=== PATIENT | male | born 1965 | race Caucasian/White ===

== ENCOUNTER 2024-09-18 15:23 | Outpatient (AMB) | payer OTHER, SELFPAY ==
--- NOTE | 2024-09-18 15:25 | MHC.OFFVIS ---
Vital Signs 09/18/24 15:27 Height 5 ft 4 in Weight 245 lb 13.047 oz BMI 42.2 BP 176/84 H Blood Pressure Location Rt brachial Position Sitting Pulse 65 Pulse Source Pulse Oximeter Pulse Oximetry (%) 96 Oxygen Delivery Method Room Air Intake Visit Reasons: sleep apnea Allergies No Known Allergies Allergy (Verified 09/18/24 15:30) HPI HPI sleep apnea: Details: Edmund is a pleasant 58-year-old male, never smoker with underlying coronary artery disease status post CABG x 3 2020, hypertension, hyperlipidemia, diabetes mellitus type 2, GERD and very severe MAHAMED on CPAP. He was referred by PCP management of sleep apnea. He reports prior to diagnosis h/o ongoing daytime fatigue, non restorative sleep, loud snoring and witnessed apneas. He has been using and benefitting from CPAP therapy with pressure settings of [id number] with a nasal mask over the last 15 years, and is in need of a new machine. His last PSG was 2009 revealing very severe MAHAMED with AHI 115 with moderate nocturnal hypoxemixa <89% for 50 minutes. His current machine is >5 years old and displaying end of motor life. DME is [employer]. He does note more daytime fatigue over the last few months however unsure if it is related to pressures. At this time he denies any respiratory symptoms. [facility] Social History (Updated 09/18/24 @ 15:30 by Marie Moreno [facility]) Patient Tobacco Use Status: Never used Tobacco Review of Systems Const Denies chills, Denies excessive sweating, Denies fever(s), Denies headache(s) and Denies night sweats Eyes Denies dry eyes, Denies irritation and Denies itchy eyes ENT Reports Normal hearing present, Denies headache(s), Denies nasal congestion, Denies nasal discharge, Denies post nasal drip and Denies sore throat Card Denies chest pain, Denies chest pain at rest, Denies chest pain with activity, Denies claudication, Denies leg edema, Denies dyspnea, Denies dyspnea on exertion, Denies orthopnea and Denies paroxysmal nocturnal dyspnea Resp Denies chest congestion, Denies cough, Denies excessive phlegm production, Denies pain on inspiration, Denies pain with cough, Denies dyspnea, Denies dyspnea on exertion, Denies stridor and Denies wheezing Musc Denies myalgias Neuro Reports Normal hearing present and Denies headache(s) Endo Denies excessive sweating Dennis/Lymph Denies lymphadenopathy Aller/Immun Denies itchy eyes, Denies seasonal rhinorrhea and Denies wheezing Physical Exam Vital Signs: Last Vital Signs Pulse 65 09/18/24 15:27 BP 176/84 H 09/18/24 15:27 Pulse Ox 96 09/18/24 15:27 Oxygen Delivery Method Room Air 09/18/24 15:27 BMI result Body Mass Index 42.2 Const General: cooperative, healthy appearing, comfortable, no acute distress, well developed and alert Nutritional Appearance: obese Orientation/consciousness: patient oriented x3 Limitations: no limitations HEENT Head: Yes normal to inspection, Yes normocephalic and Yes atraumatic Ears: hearing grossly normal bilaterally and external ears normal Eyes General: appearance normal, both eyes and all related structures Eyelids: Yes eyelids normal Sclerae: sclerae normal EOM: EOMs intact bilaterally Neck Neck: Yes normal visual inspection and Yes no lymphadenopathy Lymphatic: no lymphadenopathy noted Chest Chest palpation & inspection: normal inspection of the chest Resp Effort & Inspection: normal respiratory effort, able to speak in complete sentences, no audible wheezes, no cough, no stridor, not tachypneic, no tripod positioning and no use of accessory muscles Auscultation: clear to auscultation bilaterally Cardio Jugular venous distension: no JVD Rate: regular rate Rhythm: regular rhythm Skin Other: warm, dry General skin exam: no rashes or lesions noted Neuro General: patient oriented x3 Cranial nerves: Yes Normal hearing present Cognition (Neuro): normal cognition Gait exam (Neuro): Normal gait present Extrem General: Yes normal to inspection, Yes capillary refill normal, Yes no clubbing, cyanosis or edema and Yes no pedal edema Psych Appearance: grossly normal and well kempt Speech and movement: Normal speech and movement present and Clear speech present Affect: normal affect Attitude: cooperative Thought process: Normal thought process present Thought content: Normal thought content present Insight: Good insight present (Psych) Judgement: Good judgement present (Psych) Assessment & Plan Assessment & Plan (1) Severe obstructive sleep apnea: Code(s): G47.33 - Obstructive sleep apnea (adult) (pediatric) Category: Medical (2) Nocturnal hypoxemia: Code(s): G47.34 - Idiopathic sleep related nonobstructive alveolar hypoventilation Category: Medical (3) Daytime somnolence: Code(s): R40.0 - Somnolence Category: Medical Plan Edmund presents for management of severe obstructive sleep apnea with moderate nocturnal hypoxemia. Patient's last PSG was in 2009 and he reports changes in weight since then in addition to increased daytime fatigue over the last few months. Will send for in lab titration study to ensure optimal pressures. Once established on CPAP therapy, will send for overnight to ensure resolution of nocturnal hypoxemia with the use of CPAP. Reviewed BP and patient recently having adjustments to BP medications, will follow up with cardiology. All questions were answered and claudiat is in agreement of plan. Will follow up to review results or sooner if needed. Orders: Orders RT PSG in-lab sleep titration Today G47.33 - Obstructive sleep apnea (adult) (pediatric), G47.34 - Idiopathic sleep related nonobstructive alveolar hypoventilation, R40.0 - Somnolence Coding Level of Care Code New Pt Level 3 (45884) Diagnoses Severe obstructive sleep apnea G47.33 Nocturnal hypoxemia G47.34 Daytime somnolence R40.0
[2024-09-18 15:27] VITALS: BP 176/84; PULSE 65; O2SAT 96; BMI 42.2
--- OUTSIDE RECORDS SUMMARY | 2024-09-18 17:17 | XMS_ITS | Clinical Summary ---
Author Organization [facility] [address] [place] [address] [place] [phone] Phone Care Team Providers Care Futures Trader Name Role Phone Krish Adams MD Primary Care Provider Allergies No known active allergies Medications lansoprazole (PREVACID) [address] capsule Take 1 capsule (15 mg total) by mouth 1 (one) time each day. 06/01/19 23 Active aspirin 81 mg EC tablet Take 81 mg by mouth daily. Active blood-glucose meter (BLOOD GLUCOSE MONITORING MISC) Check fasting sugars once daily upon awakening before food or drink 01/18/20 Active isopropyl alcohol-benzocai ne 70-6 % pads, medicated 1 Each by Does not apply route daily. Check fasting sugars once daily upon awakening before food or drink 01/18/20 Active miscellaneous medical supply misc HISTORICAL CPAP - Inhale into the lungs.apria-p ressure 6-16 Active nitroglycerin (NITROSTAT) 0.[address] 1 tablet (0.4 mg total) under the tongue every 5 (five) minutes if needed for chest pain. 30 tablet 1 03/13/20 24 026 Active FreeStyle Test test stripIndications :Type 2 diabetes mellitus without complications (CMS/HCC V24, CMS/HCC V28) USE TO CHECK SUGARS TWICE DAILY 200 strip 1 04/18/19 25 Active metFORMIN XR (GLUCOPHAGE-XR) 500 mg 24 hr tablet TAKE 2 TABLETS BY MOUTH TWICE A DAY WITH MEALS 360 tablet 1 05/09/19 25 Active freestyle (FreeStyle Lancets) 28 gauge lancets Check blood sugars 1-2 times a day. 200 each 2 05/29/19 25 Active dulaglutide (Trulicity) 1.5 mg/0.5 mL pen injector injectionIndicat ions:Coronary artery disease involving coronary bypass graft of [place] heart without angina pectoris,Primary hypertension,Mix ed hyperlipidemia,T ype 2 diabetes mellitus without complication, without long-term current use of insulin ([facility] V24, [facility] V28),MAHAMED on CPAP,Gastroesoph ageal reflux disease without esophagitis,Asym ptomatic varicose veins of both lower extremities Inject 0.5 mL (1.5 mg total) under the skin 1 (one) time per week. 6 mL 1 07/29/19 25 Active atorvastatin (LIPITOR) 40 mg tablet Take 1 tablet (40 mg total) by mouth 1 (one) time each day. 90 each 1 07/29/19 25 Active metoprolol tartrate (LOPRESSOR) 25 mg tablet TAKE 1 TABLET BY MOUTH TWICE A DAY 180 tablet 1 09/09/19 25 Active lisinopril (PRINIVIL,ZESTRI L) 40 mg tablet TAKE 1 TABLET BY MOUTH 1 TIME EACH DAY. 90 tablet 1 09/09/19 25 Active metoprolol tartrate (LOPRESSOR) 25 mg tablet Take 1 tablet (25 mg total) by mouth 2 (two) times a day. 12/30/19 24 025 Discontinued lisinopril (PRINIVIL,ZESTRI L) 40 mg tablet Take 1 tablet (40 mg total) by mouth 1 (one) time each day. 90 each 1 03/13/20 24 025 Discontinued Active Problems Problem Noted Date Diagnosed Date Gastroesophageal reflux disease without esophagi tis 07/27/2024 Asymptomatic varicose veins of both lower extrem ities 07/27/2024 Morbid obesity with BMI of 4 0.0-44.9, adult ([facility] V24, [facility] V28) 02/01/2024 Primary hypertension 02/08/2023 Overview (02/01/2024): Last Assessment & Plan: Blood pressure has been quite elevated and I will increase lisinopril to 20 mg daily. He is going to see his primary care physician's office in couple weeks to see whether hypertension has been better controlled. We discussed low-salt diet. Mixed hyperlipidemia 11/13/2020 Overview (02/01/2024): Last Assessment & Plan: Well-controlled. Continue high-dose statin. 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 Lipid profile excellent. Suggest more activity. Hope to lose weight. Bangura's esophagus without dysplasia 03/07/2020 Abnormal stress test 02/07/2020 Overview (02/01/2024): 02/02/2020 Seen by [facility], Dr. Fenton Medications adjusted and scheduled for echo and cardiac cath Type 2 diabetes mellitus wit hout complication, without long-term current use of insulin ([facility] V24, [facility] V28) 01/18/2020 MAHAMED on CPAP 03/08/2017 Overview (02/01/2024): 07/24/2018 to 07/23/2019. CPAP@ 6-16/Average 12.6/Max 14.3. 100% compliant with using the machine for >4 hours/day. Average use is 8.5 hours a night with AHI 3.7. PLMD (periodic limb movement disorder) 0 Encounters Date Type Department Care Team Description 09/14/2024 Telephone [facility] [address] [facility] [address] [place] [address] Sami Fenton MD 07/28/2024 8:00 AM EDT Office Visit Adult Medicine [address] [phone] Krish Adams MD Coronary artery disease involving coronary bypass graft of [place] heart without angina pectoris (Primary Dx); Primary hypertension; Mixed hyperlipidemia; Type 2 diabetes mellitus without complication, without long-term current use of insulin ([facility] V24, [facility] V28); MAHAMED on CPAP; Gastroesophageal reflux disease without esophagitis; Asymptomatic varicose veins of both lower extremities; Eye exam, routine 07/17/2024 Telephone Adult Medicine [facility] [address] [place] [phone] Krish Adams MD faxed order (Letter of medical necesity) 07/17/2024 Telephone Adult Medicine [facility] [address] [place] [phone] Krish Adams MD requesting script from Last 3 Months Immunizations Name Administration Dates Next Due Influenza Quadravalent, MDCK , 0.5ml, preservative free (Flucelvax) 6mo and older 01/19/2023,01/15/2021,01/18/2020 Pneumococcal polysaccharide 23 valent (Pneumovax 23) 2yo and older 05/09/2020 Tdap Tetanus diptheria acell ular pertussis (Boostrix; Adacel) 7yo and older 01/18/2020 Surgical History Surgery Date Site/Laterality Comments CORONARY ARTERY BYPASS GRAFT 04/19/2020 PROCEDURE: HISTORICAL CABG Medical History Medical History Date Comments HTN (hypertension) DX:HTN (hyper tension) HLD (hyperlipidemia) DX:HLD (hyp erlipidemia) DM (diabetes mellitus) (CMS/ [facility] V24, [facility] V28) DX:DM (diabetes mellitus) (H CC) CAD (coronary artery disease) DX :CAD (coronary artery disease); COMMENT: Sp CABG GERD (gastroesophageal reflux disease) MAHAMED on CPAP Family History Medical History Relation Name Comments Diabetes Brother Other: Alcoholic cirrhosis Father Diabetes Mother Other: Heart issues Mother Cancer Neg Hx Relation Name Status Comments Brother Father Mother Social History Tobacco Use Types Packs/Day Years Used Date Smoking Tobacco: Never Smokeless Tobacco: Never Tobacco Cessation:Counseling Given: Not Answered Alcohol Use Standard Drinks/Week Comments Yes 0 (1 standard drink = 0.6 oz pur e alcohol) Housing Instability Answer Date Recorde d Are you worried that in the next 2 months you may not have stable housing? No 03/13/2024 Food Access & Nutrition Answer Date Rec orded Do you have access to a vari ety of food including fruits and vegetables? Yes 03/13/2024 Access to Healthcare Answer Date Record ed Within the last 3 months, valorie olivo many times did you visit the emergency department for your medical care? 0 03/13/2024 Health Literacy Answer Date Recorded How often do you need to hav e someone help you when you read instructions, pamphlets, or other written material from your doctor or pharmacy? Rarely 03/13/2024 Caregiver: How often do you need to have someone help you when you read instructions, pamphlets, or other written material from your doctor or pharmacy? Not on file 03/13/2024 Financial Risk Answer Date Recorded How hard is it for you to pa y for the very basics like food, housing, medical care, and air conditioning / heating? Not very hard 03/13/2024 Transportation Answer Date Recorded Has the lack of transportati on kept you from meetings, work, or from getting things needed for daily living? No Has the lack of transportati on kept you from medical appointments or from getting medications? No 03/13/2024 Social Isolation Answer Date Recorded How often do you feel lonely or isolated from th ose around you? Often 03/13/2024 Food Risk Answer Date Recorded Within the past 12 months we worried whether our food would run out before we got money to buy more. Never true 03/13/2024 Within the past 12 months th e food we bought just didn't last and we didn't have money to get more. Never true 03/13/2024 Dependent Care Answer Date Recorded Do you need help finding or paying for care for your loved ones. For example, child care supervisor or elderly care for an older adult? No 03/13/2024 Education Answer Date Recorded Do you think completing more education or training, like finishing a GED, going to college, or learning a trade, would be helpful for you? No 03/13/2024 Employment and Income Answer Date Recor ded During the last four weeks, have you been actively looking for work? No 03/13/2024 Living Situation Answer Date Recorded What is your living situation? 1 05/14/2023 Sex and Gender Information Value Date Recorded Sex Assigned at Not on file Legal Sex Male 4:15 AM EST Gender Identity Not on file Sexual Orientation Not on file Obstetrics History Last Filed Vital Signs Vital Sign Reading Time Taken Comments Blood Pressure 130/80 07/28/2024 8:03 AM EDT Pulse 64 07/28/2024 8:03 AM EDT Temperature 36.6 ??C (97.8 ??F) 07/28/2024 8:03 AM ED T Respiratory Rate 14 07/28/2024 8:03 AM EDT Oxygen Saturation 98% 07/28/2024 8:03 AM EDT Inhaled Oxygen Concentration - - Weight 111 kg (244 lb) 07/28/2024 8:03 AM EDT Height 162.6 cm (5' 4 ) 07/28/2024 8:03 AM EDT Body Mass Index 41.88 07/28/2024 8:03 AM EDT Plan of Treatment Health Maintenance Due Date Last Done Comments Diabetes: Annual Retina Eye Exam 10/27/1973 Pneumococcal Vaccine: 50+ Years (2 of 2 - PCV) 05/09/2021 05/09/2020 Pneumococcal Vaccine: Pediatrics (0 to 5 Years) and At-Risk Patients (6 to 64 Years) (2 of 2 - PCV) 05/09/2021 05/09/2020 Zoster Vaccines (2 of 2) 08/06/2021 06/11/2021 HIV Screening 03/14/2022 RSV Immunization Adult Patients (1 - Risk 60-74 years 1-dose series) 2023 COVID-19 Vaccine (5 - Mixed Product risk season) 2024 01/13/2024, 01/15/2022, 07/01/2020, Additional history exists Diabetes: Blood Sugar Control Test (HGBA1C) 09/18/2024 03/20/2024, 10/04/2023, 10/04/2023 Diabetes: Annual Foot Exam 09/19/2024 09/20/2023 Social Influencers of Health Screening 03/13/2025 03/13/2024 Diabetes: Annual Urine Albumin-Creatinine Ratio (uACR) 03/20/2025 03/20/2024, 10/04/2023 Diabetes: Annual GFR (Glomerular Filtration Rate) 03/20/2025 03/20/2024, 10/04/2023, 10/04/2023 Hypertension/CHF/CAD Annual BMP Blood Test 03/20/2025 03/20/2024, 10/04/2023, 10/04/2023 Depression Screening 07/24/2025 07/24/2024, 03/13/20 24 Cholesterol Screening (Lipid Panel) 10/03/2028 10/04/2023, 10/04/2023 DTaP,Tdap,and Td Vaccines (2 - Td or Tdap) 01/17/2030 01/18/2020 Colorectal Cancer Screening: Colonoscopy 02/21/2031 02/21/2021 Hepatitis C Screening Completed 01/15/2021 Influenza Vaccine Completed 12/23/2023, , 01/16/2022, Additional history exists HIB Vaccines Aged Out No longer eligi ble based on patient's age to complete this topic HPV Vaccines Aged Out No longer eligi ble based on patient's age to complete this topic Hepatitis A Vaccines Aged Out No long er eligible based on patient's age to complete this topic Hepatitis B Vaccines Aged Out No long er eligible based on patient's age to complete this topic IPV Vaccines Aged Out No longer eligi ble based on patient's age to complete this topic MMR Vaccines Aged Out No longer eligi ble based on patient's age to complete this topic Meningococcal ACWY Vaccine Aged Out N o longer eligible based on patient's age to complete this topic Meningococcal B Vaccine Aged Out No l onger eligible based on patient's age to complete this topic RSV Immunization Patients Under 20 months Aged Out No longer eligible based on patient's age to complete this topic Varicella Vaccines Aged Out No longer eligible based on patient's age to complete this topic Procedures Procedure Name Priority Date/Time Associated Diagnosis Comments MICROALBUMIN CREATININE URINE RATIO Routine 03/20/2024 11:42 AM EST Physical exam Coronary artery disease involving coronary bypass graft of [place] heart without angina pectoris Primary hypertension Mixed hyperlipidemia Type 2 diabetes mellitus without complication, without long-term current use of insulin ([facility] V24, [facility] V28) MAHAMED on CPAP Gastroesophageal reflux disease without esophagitis Multiple atypical skin moles Asymptomatic varicose veins of both lower extremities BASIC METABOLIC PANEL Routine 03/20/2024 11:41 AM EST Physical exam Coronary artery disease involving coronary bypass graft of [place] heart without angina pectoris Primary hypertension Mixed hyperlipidemia Type 2 diabetes mellitus without complication, without long-term current use of insulin ([facility] V24, [facility] V28) MAHAMED on CPAP Gastroesophageal reflux disease without esophagitis Multiple atypical skin moles Asymptomatic varicose veins of both lower extremities HEMOGLOBIN A1C Routine 03/20/2024 11:41 AM EST Physical exam Coronary artery disease involving coronary bypass graft of [place] heart without angina pectoris Primary hypertension Mixed hyperlipidemia Type 2 diabetes mellitus without complication, without long-term current use of insulin ([facility] V24, [facility] V28) MAHAMED on CPAP Gastroesophageal reflux disease without esophagitis Multiple atypical skin moles Asymptomatic varicose veins of both lower extremities LIPID PANEL Routine 10/04/2023 DIABETES FOOT EXAM Routine 09/20/2023 COLONOSCOPY Routine 02/21/2021 HEPATITIS C SCREENING Routine 01/15/2021 from Last 3 Months or Most Recently Relevant to Health Maintenance Results * Microalbumin creatinine urine ratio (03/20/2024 11:42 AM EST) Creatinine, Urine 135.0 mg/dL LAB CHEMISTRY METHOD 03/20/2024 5:50 PM EST [facility] Microalb, Ur 17.6 0.0 - 29.0 mg/L LAB CHEMISTRY METHOD 03/20/2024 5:50 PM EST [facility] Microalb/Creat Ratio 13 <30 mg/g creat LAB CHEMISTRY METHOD 03/20/2024 5:50 PM EST [facility] Urine Urine specimen obtained by clean catch procedure / Unknown Non-blood Collection / Unknown 03/20/2024 11:42 AM EST 03/20/2024 11:42 AM EST us Krish Adams MD LAB URINE ORDERABLES Final Result [facility]) [facility] [address] [place] [address], * (ABNORMAL) Hemoglobin A1c (03/20/2024 11:41 AM EST) Hemoglobin A1C 6.5(H) <6.5 % LAB CHEMISTRY METHOD 03/20/2024 2:46 PM [facility] Mean Bld Glu Estim. 140 mg/dL LAB CHEMISTRY METHOD 03/20/2024 2:46 PM [facility] Blood Venous blood specimen / Unknown Venipuncture / Unknown 03/20/2024 11:41 AM EST 03/20/2024 11:41 AM EST us Krish Adams MD LAB BLOOD ORDERABLES Final Result [facility] [address] [place] [address], * (ABNORMAL) Basic metabolic panel (03/20/2024 11:41 AM EST) Pathologist [facility] Sodium 142 133 - 145 mmol/L LAB CHEMISTRY METHOD 03/20/2024 7:12 PM [facility] Potassium 4.2 3.5 - 5.5 mmol/L LAB CHEMISTRY METHOD 03/20/2024 7:12 PM [facility] Chloride 109 96 - 110 mmol/L LAB CHEMISTRY METHOD 03/20/2024 7:12 PM [facility] CO2 26 21 - 32 mmol/L LAB CHEMISTRY METHOD 03/20/2024 7:12 PM [facility] Anion Gap 7 3 - 11 LAB CHEMISTRY METHOD 03/20/2024 7:12 PM [facility] Glucose 127(H) 70 - 100 mg/dL LAB CHEMISTRY METHOD 03/20/2024 7:12 PM [facility] BUN 10 5 - 25 mg/dL LAB CHEMISTRY METHOD 03/20/2024 7:12 PM [facility] Creatinine 0.70 0.70 - 1.30 mg/dL LAB CHEMISTRY METHOD 03/20/2024 7:12 PM [facility] eGFR 105 >=60 mL/min/1. 73m2 LAB CHEMISTRY METHOD 03/20/2024 7:12 PM EST [facility] Comment:Calculation based on the??Chronic Kidney Disease Epidemiology Collaboration (CKD-EPI) equation refit??without adjustment for race. BUN/Creatinine Ratio 14.3 LAB CHEMISTRY METHOD 03/20/2024 7:12 PM EST [facility] Calcium 9.2 8.5 - 10.5 mg/dL LAB CHEMISTRY METHOD 03/20/2024 7:12 PM EST [facility] Blood Venous blood specimen / Unknown Venipuncture / Unknown 03/20/2024 11:41 AM EST 03/20/2024 11:41 AM EST Krish Adams MD LAB BLOOD ORDERABLES Final Result [facility] [address] [place] [address], * Lipid panel (10/04/2023) [facility] LDL/HDL Ratio 2 0 - 4 Triglycerides 111 0 - 150 mg/dL Cholesterol 112 0 - 200 mg/dL HDL 51 >=40 mg/dL LDL Cholesterol 39 0 - 100 mg/dL Blood Venous blood specimen / Unknown Result [facility] Garrick SAMANO LAB BLOOD ORDERABLES Alie l Result * Diabetes Foot Exam (09/20/2023) [facility] Diabetes: Annual Foot Exam abstracted Historical [facility]TENA[facility]CE Final Result * Colonoscopy (02/21/2021) [facility] Colonoscopy abstracted,no interpretation Anatomical Region Laterality Modality Other [facility] MA[facility]TENAN[facility] Final Result * Hepatitis C Screening (01/15/2021) [facility] Hepatitis C Screening abstracted Result [facility]TENAN[facility] Final Result from Last 3 Months or Most Recently Relevant to Health Maintenance Insurance [facility] Care Teams Futures Trader Relationship Specialty Start Date End Date Krish Adams MD [address] [place] [address] PCP - General Internal Medicine 08/04/21
== END 2024-09-18 15:57 | disposition home or self-care (01) ==
LOC: HO.HPS 15:23
PROVIDERS: PCP Internal Medicine; Visit Provider Nurse Practitioner Family
DX: G47.33 Obstructive sleep apnea (adult) (pediatric) (principal); G47.34 Idiopathic sleep related nonobstructive alveolar hypoventilation; R40.0 Somnolence
CPT/HCPCS: 99203

== ENCOUNTER → 2024-09-18 15:23 | Outpatient (BNVA) | payer OTHER, SELFPAY | PROVIDERS: PCP Internal Medicine; Visit Provider Nurse Practitioner Family | DX: G47.33 Obstructive sleep apnea (adult) (pediatric) (principal); G47.34 Idiopathic sleep related nonobstructive alveolar hypoventilation; R40.0 Somnolence | CPT/HCPCS: 99202 ==

== ENCOUNTER → 2024-10-08 19:30 | Outpatient (BNV) | payer OTHER, SELFPAY | PROVIDERS: Visit Provider Internal Medicine | DX: G47.33 Obstructive sleep apnea (adult) (pediatric) (principal) | CPT/HCPCS: 95810 ==

== ENCOUNTER → 2024-10-08 19:30 | Outpatient (REF) | payer OTHER, SELFPAY | LOC: HO.SL 19:30 | PROVIDERS: Visit Provider Nurse Practitioner Family | DX: G47.33 Obstructive sleep apnea (adult) (pediatric) (principal); G47.34 Idiopathic sleep related nonobstructive alveolar hypoventilation; R40.0 Somnolence | CPT/HCPCS: 95810 ==

== ENCOUNTER 2024-11-13 09:11 | Outpatient (AMB) | payer OTHER, SELFPAY ==
--- NOTE | 2024-11-13 09:28 | MHC.OFFVIS ---
Vital Signs 11/13/24 09:41 Height 5 ft 4 in Weight 245 lb 13.047 oz BMI 42.2 BP 140/76 H Blood Pressure Location Rt brachial Position Sitting Pulse 57 Pulse Source Pulse Oximeter Pulse Oximetry (%) 97 Oxygen Delivery Method Room Air Intake Visit Reasons: Sleep apnea Allergies No Known Allergies Allergy (Verified 11/13/24 09:43) HPI HPI Sleep apnea: Details: Edmund is a pleasant 59-year-old male, never smoker with underlying coronary artery disease status post CABG x 3 2020, hypertension, hyperlipidemia, diabetes mellitus type 2, GERD and very severe MAHAMED on CPAP. He was initially referred by PCP management of sleep apnea. He has been using and benefitting from CPAP therapy with pressure settings of [id number] with a nasal mask over the last 15 years, and is in need of a new machine. His last PSG was 2009 revealing very severe MAHAMED with AHI 115 with moderate nocturnal hypoxemixa <89% for 50 minutes. His current machine is >5 years old and displaying end of motor life. DME is [facility]. At the last visit, he was sent for in lab titration study and presents to review results. At this time, he denies any respiratory symptoms. [facility] Social History Patient Tobacco Use Status: Never used Tobacco Review of Systems Const Denies chills, Denies excessive sweating, Denies fever(s), Denies headache(s) and Denies night sweats Eyes Denies dry eyes, Denies irritation and Denies itchy eyes ENT Reports Normal hearing present, Denies headache(s), Denies nasal congestion, Denies nasal discharge, Denies post nasal drip and Denies sore throat Card Denies chest pain, Denies chest pain at rest, Denies chest pain with activity, Denies claudication, Denies leg edema, Denies dyspnea, Denies dyspnea on exertion, Denies orthopnea and Denies paroxysmal nocturnal dyspnea Resp Denies chest congestion, Denies cough, Denies excessive phlegm production, Denies pain on inspiration, Denies pain with cough, Denies dyspnea, Denies dyspnea on exertion, Denies stridor and Denies wheezing Musc Denies myalgias Neuro Reports Normal hearing present and Denies headache(s) Endo Denies excessive sweating Dennis/Lymph Denies lymphadenopathy Aller/Immun Denies itchy eyes, Denies seasonal rhinorrhea and Denies wheezing Physical Exam Vital Signs: Last Vital Signs Pulse 57 11/13/24 09:41 BP 140/76 H 11/13/24 09:41 Pulse Ox 97 11/13/24 09:41 Oxygen Delivery Method Room Air 11/13/24 09:41 BMI result Body Mass Index 42.2 Const General: cooperative, healthy appearing, comfortable, no acute distress, well developed and alert Nutritional Appearance: obese Orientation/consciousness: patient oriented x3 Limitations: no limitations HEENT Head: Yes normal to inspection, Yes normocephalic and Yes atraumatic Ears: hearing grossly normal bilaterally and external ears normal Eyes General: appearance normal, both eyes and all related structures Eyelids: Yes eyelids normal Sclerae: sclerae normal EOM: EOMs intact bilaterally Neck Neck: Yes normal visual inspection and Yes no lymphadenopathy Lymphatic: no lymphadenopathy noted Chest Chest palpation & inspection: normal inspection of the chest Resp Effort & Inspection: normal respiratory effort, able to speak in complete sentences, no audible wheezes, no cough, no stridor, not tachypneic, no tripod positioning and no use of accessory muscles Auscultation: clear to auscultation bilaterally Cardio Jugular venous distension: no JVD Rate: regular rate Rhythm: regular rhythm Skin Other: warm, dry General skin exam: no rashes or lesions noted Neuro General: patient oriented x3 Cranial nerves: Yes Normal hearing present Cognition (Neuro): normal cognition Gait exam (Neuro): Normal gait present Extrem General: Yes normal to inspection, Yes capillary refill normal, Yes no clubbing, cyanosis or edema and Yes no pedal edema Psych Appearance: grossly normal and well kempt Speech and movement: Normal speech and movement present and Clear speech present Affect: normal affect Attitude: cooperative Thought process: Normal thought process present Thought content: Normal thought content present Insight: Good insight present (Psych) Judgement: Good judgement present (Psych) Assessment & Plan Assessment & Plan (1) Severe obstructive sleep apnea: Code(s): G47.33 - Obstructive sleep apnea (adult) (pediatric) Category: Medical Plan Reviewed in lab PSG which revealed moderate MAHAMED with AHI 15 and no significant nocturnal hypoxemia, however likely underestimated given poor sleep efficiency. Will send in prescription for APAP mode and pressure settings of 6-20 cmH2O to [facility] with close monitoring for compliance and benefits. Sleep hygiene education reviewed. He is aware if there are any issues with the mask or CPAP machine, to call [facility]. Once established on new settings, will send for overnight oximetry. All questions were answered and patiennt is in agreement of plan. Will follow up in 10-12 weeks or sooner if needed. Coding Level of Care Code Est Pt Level 4 (79815) Diagnoses Severe obstructive sleep apnea G47.33
--- OUTSIDE RECORDS SUMMARY | 2024-11-13 09:38 | XMS_ITS ---
Author Name [facility] ([place], [place]) Organization Unknown Care Team Organization Name Specialty Phone Email Start Date End Da te [facility] Krish Adams Primary Care 06/10/202211/03 [facility] Danielle Seo Primary Care 02/10/20222023
--- OUTSIDE RECORDS SUMMARY | 2024-11-13 09:38 | XMS_ITS | Clinical Summary ---
Author Organization [facility] [address] [place] [address] [place] [phone] Phone Care Team Providers Care Structural Steel Ironworker Name Role Phone Krish Adams MD Primary Care Provider Allergies No known active allergies Medications lansoprazole (PREVACID) [address] capsule Take 1 capsule (15 mg total) by mouth 1 (one) time each day. 3 Active aspirin 81 mg EC tablet Take 81 mg by mouth daily. Active blood-glucose meter (BLOOD GLUCOSE MONITORING MISC) Check fasting sugars once daily upon awakening before food or drink 0 Active isopropyl alcohol-benzocain e 70-6 % pads, medicated 1 Each by Does not apply route daily. Check fasting sugars once daily upon awakening before food or drink 0 Active miscellaneous medical supply misc HISTORICAL CPAP - Inhale into the lungs.apria-pr essure 6-16 Active nitroglycerin (NITROSTAT) 0.[address] 1 tablet (0.4 mg total) under the tongue every 5 (five) minutes if needed for chest pain. 30 tablet 1 4 04/07/19 26 Active FreeStyle Test test stripIndications: Type 2 diabetes mellitus without complications (CMS/HCC V24, CMS/HCC V28) USE TO CHECK SUGARS TWICE DAILY 200 strip 1 5 Active metFORMIN XR (GLUCOPHAGE-XR) 500 mg 24 hr tablet TAKE 2 TABLETS BY MOUTH TWICE A DAY WITH MEALS 360 tablet 1 5 Active freestyle (FreeStyle Lancets) 28 gauge lancets Check blood sugars 1-2 times a day. 200 each 2 5 Active dulaglutide (Trulicity) 1.5 mg/0.5 mL pen injector injectionIndicati ons:Coronary artery disease involving coronary bypass graft of solomon heart without angina pectoris,Primary hypertension,Mixe d hyperlipidemia,Ty pe 2 diabetes mellitus without complication, without long-term current use of insulin ([facility] V24, [facility] V28),MAHAMED on CPAP,Gastroesopha geal reflux disease without esophagitis,Asymp tomatic varicose veins of both lower extremities Inject 0.5 mL (1.5 mg total) under the skin 1 (one) time per week. 6 mL 1 5 Active atorvastatin (LIPITOR) 40 mg tablet Take 1 tablet (40 mg total) by mouth 1 (one) time each day. 90 each 1 5 Active metoprolol tartrate (LOPRESSOR) 25 mg tablet TAKE 1 TABLET BY MOUTH TWICE A DAY 180 tablet 1 5 Active lisinopril (PRINIVIL,ZESTRIL ) 40 mg tablet TAKE 1 TABLET BY MOUTH 1 TIME EACH DAY. 90 tablet 1 5 Active Active Problems Problem Noted Date Diagnosed Date Gastroesophageal reflux disease without esophagi tis 07/27/2024 Asymptomatic varicose veins of both lower extrem ities 07/27/2024 Morbid obesity with BMI of 4 0.0-44.9, adult ([facility] V24, [facility] V28) 02/01/2024 Primary hypertension 02/08/2023 Overview (02/01/2024): [...] test 02/07/2020 Overview (02/01/2024): 02/02/2020 Seen by [facility], Dr. Fenton Medications adjusted and scheduled for echo and cardiac cath Type 2 diabetes mellitus wit hout complication, without long-term current use of insulin ([facility] V24, [facility] V28) 01/18/2020 MAHAMED on CPAP 03/08/2017 Overview (02/01/2024): 07/24/2018 to 07/23/2019. CPAP@ 6-16/Average 12.6/Max 14.3. 100% compliant with using the machine for >4 hours/day. Average use is 8.5 hours a night with AHI 3.7. PLMD (periodic limb movement disorder) 0 Encounters Date Type Department Care Team Description 09/14/2024 Telephone [facility] [address] [facility] [address] [place] [address] Sami Fenton MD from Last 3 Months Immunizations Name Administration [...] (hyperlipidemia) DX:HLD (hyp erlipidemia) DM (diabetes mellitus) ([facility] V24, [facility] V28) DX:DM (diabetes mellitus) (H CC) CAD [...] Record ed Within the last 3 months, ho w many times did you visit the emergency [...] your loved ones. For example, child care leader or elderly care for an older adult? [...] 64 07/28/2024 8:03 AM EDT Temperature 36.6 C (97.8 F) 07/28/2024 8:03 AM EDT Respiratory Rate 14 07/28/2024 8:03 AM EDT [...] 10/04/2023 Diabetes: Annual Foot Exam 09/19/2024 09/20/2023 Influenza Vaccine (#1) 2024 , 01/19/2023, 01/16/2022, Additional history exists Social Influencers of Health Screening 03/13/2025 03/13/2024 Diabetes: Annual Urine Albumin-Creatinine Ratio (uACR) 03/20/2025 03/20/2024, 10/04/2023 Diabetes: Annual GFR (Glomerular Filtration Rate) 03/20/2025 03/20/2024, 10/04/2023, 10/04/2023 Hypertension/CHF/CAD Annual BMP Blood Test 03/20/2025 03/20/2024, 10/04/2023, 10/04/2023 Cholesterol Screening (Lipid Panel) 10/03/2028 10/04/2023, 10/04/2023 DTaP,Tdap,and Td Vaccines (2 - Td or Tdap) 01/17/2030 01/18/2020 Colorectal Cancer Screening: Colonoscopy 02/21/2031 02/21/2021 Hepatitis C Screening Completed 01/15/2021 Depression Screening Completed 07/24/2024 HIB Vaccines Aged Out No longer eligi [...] artery disease involving coronary bypass graft of solomon heart without angina pectoris Primary hypertension Mixed hyperlipidemia Type 2 diabetes mellitus without complication, without long-term current use of insulin ([facility] V24, [facility] V28) MAHAMED on CPAP Gastroesophageal reflux disease without esophagitis Multiple atypical skin moles Asymptomatic varicose veins of both lower extremities BASIC METABOLIC PANEL Routine 03/20/2024 11:41 AM EST Physical exam Coronary artery disease involving coronary bypass graft of solomon heart without angina pectoris Primary hypertension Mixed hyperlipidemia Type 2 diabetes mellitus without complication, without long-term current use of insulin (CMS/HCC V24, CMS/HCC V28) MAHAMED on CPAP Gastroesophageal reflux disease without esophagitis Multiple atypical skin moles Asymptomatic varicose veins of both lower extremities HEMOGLOBIN A1C Routine 03/20/2024 11:41 AM EST Physical exam Coronary artery disease involving coronary bypass graft of solomon heart without angina pectoris Primary hypertension Mixed hyperlipidemia Type 2 diabetes mellitus without complication, without long-term current use of insulin (CMS/HCC V24, CMS/HCC V28) MAHAMED on CPAP Gastroesophageal reflux disease [...] LAB CHEMISTRY METHOD 03/20/2024 5:50 PM EST [facility] Microalb, Ur 17.6 0.0 - 29.0 mg/L LAB CHEMISTRY METHOD 03/20/2024 5:50 PM EST [facility] Microalb/Creat Ratio 13 <30 mg/g creat LAB CHEMISTRY METHOD 03/20/2024 5:50 PM EST [facility] Urine Urine specimen obtained by clean catch procedure / Unknown Non-blood Collection / Unknown 03/20/2024 11:42 AM EST 03/20/2024 11:42 AM EST Krish Adams MD LAB URINE ORDERABLES Final Result [facility] [address] [place] [address], [place] [phone] * (ABNORMAL) Hemoglobin A1c (03/20/2024 11:41 AM EST) Pathologist [facility] Hemoglobin A1C 6.5(H) <6.5 % LAB CHEMISTRY METHOD 03/20/2024 2:46 PM EST [facility] Mean Bld Glu Estim. 140 mg/dL LAB CHEMISTRY METHOD 03/20/2024 2:46 PM [facility] Blood Venous blood specimen / Unknown Venipuncture / Unknown 03/20/2024 11:41 AM EST 03/20/2024 11:41 AM EST Krish Adams MD LAB BLOOD ORDERABLES Final Result [facility] [address] [place] [address], [place] [phone] * (ABNORMAL) Basic metabolic panel (03/20/2024 11:41 AM EST) Pathologist [facility] Sodium 142 133 - 145 mmol/L LAB CHEMISTRY METHOD 03/20/2024 7:12 PM [facility] Potassium 4.2 3.5 - 5.5 mmol/L LAB CHEMISTRY METHOD 03/20/2024 7:12 PM [facility] Chloride 109 96 - 110 mmol/L LAB CHEMISTRY METHOD 03/20/2024 7:12 PM [facility] CO2 26 21 - 32 mmol/L LAB CHEMISTRY METHOD 03/20/2024 7:12 PM [facility] Anion Gap 7 3 - 11 LAB CHEMISTRY METHOD 03/20/2024 7:12 PM [facility] Glucose 127(H) 70 - 100 mg/dL LAB CHEMISTRY METHOD 03/20/2024 7:12 PM [facility] BUN 10 5 - 25 mg/dL LAB CHEMISTRY METHOD 03/20/2024 7:12 PM [facility] Creatinine 0.70 0.70 - 1.30 mg/dL LAB CHEMISTRY METHOD 03/20/2024 7:12 PM [facility] eGFR 105 >=60 mL/min/1. 73m2 LAB CHEMISTRY METHOD 03/20/2024 7:12 PM [facility] Comment:Calculation based on the Chronic Kidney Disease Epidemiology Collaboration (CKD-EPI) equation refit without adjustment for race. BUN/Creatinine Ratio 14.3 LAB CHEMISTRY METHOD 03/20/2024 7:12 PM [facility] Calcium 9.2 8.5 - 10.5 mg/dL LAB CHEMISTRY METHOD 03/20/2024 7:12 PM [facility] Blood Venous blood specimen / Unknown Venipuncture / Unknown 03/20/2024 11:41 AM EST 03/20/2024 11:41 AM EST Krish Adams MD LAB BLOOD ORDERABLES Final Result [facility] [address] [place] [address], * Lipid panel (10/04/2023) Pathologist [facility] LDL/HDL Ratio 2 0 - 4 Triglycerides 111 0 - 150 mg/dL Cholesterol 112 0 - 200 mg/dL HDL 51 >=40 mg/dL LDL Cholesterol 39 0 - 100 mg/dL Blood Venous blood specimen / Unknown Amber Provider LAB BLOOD ORDERABLES Alie l Result * Diabetes Foot Exam (09/20/2023) Pathologist [facility] Diabetes: Annual Foot Exam abstracted Historical Provider HEALTH MAINTENANCE Final Result * Colonoscopy (02/21/2021) [facility] Colonoscopy abstracted,no interpretation Anatomical Region Laterality Modality Other [facility] Provider HEALTH MAINTENANCE Final Result * Hepatitis C Screening (01/15/2021) Pathologist [facility] Hepatitis C Screening abstracted [facility] Provider HEALTH MAINTENANCE Final Result from Last 3 Months or Most Recently Relevant to Health Maintenance Insurance [facility] [employer] Care Teams Structural Steel Ironworker Relationship Specialty Start Date End Date Krish Adams MD [address] [place] [address] PCP - General Internal Medicine 08/04/21
[2024-11-13 09:41] VITALS: BP 140/76; PULSE 57; O2SAT 97; BMI 42.2
== END 2024-11-13 10:03 | disposition home or self-care (01) ==
LOC: HO.HPS 09:12
PROVIDERS: PCP Internal Medicine; Visit Provider Nurse Practitioner Family
DX: G47.33 Obstructive sleep apnea (adult) (pediatric) (principal)
CPT/HCPCS: 99214

== ENCOUNTER → 2024-11-13 09:11 | Outpatient (BNVA) | payer OTHER, SELFPAY | PROVIDERS: PCP Internal Medicine; Visit Provider Nurse Practitioner Family | DX: G47.33 Obstructive sleep apnea (adult) (pediatric) (principal) | CPT/HCPCS: 99212 ==

== ENCOUNTER 2024-12-25 12:22 | Outpatient (AMB) | payer OTHER, SELFPAY ==
--- NOTE | 2024-12-25 12:48 | MHC.OFFVIS ---
Vital Signs 12/25/24 13:05 Height 5 ft 4 in Weight 244 lb 11.41 oz BMI 42.0 BP 136/68 Blood Pressure Location Rt brachial Position Sitting Pulse 59 Pulse Source Pulse Oximeter Pulse Oximetry (%) 97 Oxygen Delivery Method Room Air Intake Visit Reasons: sleep apnea Allergies No Known Allergies Allergy (Verified 12/25/24 13:08) HPI HPI sleep apnea: Details: Edmund is a pleasant 59-year-old male, never smoker, with underlying coronary artery disease status post CABG x 3 2020, hypertension, hyperlipidemia, diabetes mellitus type 2, GERD and very severe MAHAMED on CPAP. He was initially referred by PCP management of sleep apnea. His current machine is >5 years old and displaying end of motor life. D[facility] is [facility]. At the last visit, a new prescription for CPAP therapy was sent to [facility] as in lab PSG revealed AHI 22 without significant nocturnal hypoxemia however poor sleep efficiency so likely underestimated severity of MAHAMED. 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 Today he presents with reported pleuritic disomfort that was present two weeks ago for two days, right upper chest sharp in nature that resolved spontaneously. He attributes the discomfort to position while sleeping vs heavy lifting however wanted to have further evaluation. He denies any URI or associated dyspnea, dizziness, upper extremity discomfort. He denies reproducible pain or skin changes. He notes that the pain felt deep like bone pain . He denies any recent imaging. [facility] Social History Patient Tobacco Use Status: Never used Tobacco Review of Systems Const Denies chills, Denies excessive sweating, Denies fever(s), Denies headache(s) and Denies night sweats Eyes Denies dry eyes, Denies irritation and Denies itchy eyes ENT Reports Normal hearing present, Denies headache(s), Denies nasal congestion, Denies nasal discharge, Denies post nasal drip and Denies sore throat Card Denies chest pain, Denies chest pain at rest, Denies chest pain with activity, Denies claudication, Denies leg edema, Denies dyspnea, Denies dyspnea on exertion, Denies orthopnea and Denies paroxysmal nocturnal dyspnea Resp Denies chest congestion, Denies cough, Denies excessive phlegm production, Denies pain on inspiration, Denies pain with cough, Denies dyspnea, Denies dyspnea on exertion, Denies stridor and Denies wheezing Musc Denies myalgias Neuro Reports Normal hearing present and Denies headache(s) Endo Denies excessive sweating Dennis/Lymph Denies lymphadenopathy Aller/Immun Denies itchy eyes, Denies seasonal rhinorrhea and Denies wheezing Physical Exam Vital Signs: Last Vital Signs Pulse 59 12/25/24 13:05 BP 136/68 12/25/24 13:05 Pulse Ox 97 12/25/24 13:05 Oxygen Delivery Method Room Air 12/25/24 13:05 BMI result Body Mass Index 42.0 Const General: cooperative, healthy appearing, comfortable, no acute distress, well developed and alert Nutritional Appearance: obese Orientation/consciousness: patient oriented x3 Limitations: no limitations HEENT Head: Yes normal to inspection, Yes normocephalic and Yes atraumatic Ears: hearing grossly normal bilaterally and external ears normal Eyes General: appearance normal, both eyes and all related structures Eyelids: Yes eyelids normal Sclerae: sclerae normal EOM: EOMs intact bilaterally Neck Neck: Yes normal visual inspection and Yes no lymphadenopathy Lymphatic: no lymphadenopathy noted Chest Chest palpation & inspection: normal inspection of the chest Resp Effort & Inspection: normal respiratory effort, able to speak in complete sentences, no audible wheezes, no cough, no stridor, not tachypneic, no tripod positioning and no use of accessory muscles Auscultation: clear to auscultation bilaterally Cardio Jugular venous distension: no JVD Rate: regular rate Rhythm: regular rhythm Skin Other: warm, dry General skin exam: no rashes or lesions noted Neuro General: patient oriented x3 Cranial nerves: Yes Normal hearing present Cognition (Neuro): normal cognition Gait exam (Neuro): Normal gait present Extrem General: Yes normal to inspection, Yes capillary refill normal, Yes no clubbing, cyanosis or edema and Yes no pedal edema Psych Appearance: grossly normal and well kempt Speech and movement: Normal speech and movement present and Clear speech present Affect: normal affect Attitude: cooperative Thought process: Normal thought process present Thought content: Normal thought content present Insight: Good insight present (Psych) Judgement: Good judgement present (Psych) Assessment & Plan Assessment & Plan (1) Severe obstructive sleep apnea: Code(s): G47.33 - Obstructive sleep apnea (adult) (pediatric) Category: Medical (2) Pleuritic pain: Code(s): R07.81 - Pleurodynia Category: Medical Plan Prescription was sent to [facility] for APAP mode and pressure settings of 6-20 cmH2O and is awaiting further instructions from [facility] to obtain. At this time he denies any respiratory symptoms and previously noted pleuritic discomfort has resolved. Will send for CXR to further evaluate. Discussed signs and symptoms which would warrant emergent evaluation. All questions were answered and patiennt is in agreement of plan. Will follow up in 10-12 weeks or sooner if needed. Orders: Orders XR chest 2V Today J86.9 - Pyothorax without fistula Coding Level of Care Code Est Pt Level 4 (65162) Diagnoses Severe obstructive sleep apnea G47.33 Pleuritic pain R07.81
[2024-12-25 13:05] VITALS: BP 136/68; PULSE 59; O2SAT 97; BMI 42.0
== END 2024-12-25 13:33 | disposition home or self-care (01) ==
LOC: HO.HPS 12:23
PROVIDERS: PCP Internal Medicine; Visit Provider Nurse Practitioner Family
DX: G47.33 Obstructive sleep apnea (adult) (pediatric) (principal); R07.81 Pleurodynia
CPT/HCPCS: 99214

== ENCOUNTER 2024-12-25 12:22 | Outpatient (REF) | payer OTHER, SELFPAY | END 2024-12-25 12:23 | disposition home or self-care (01) | LOC: HO.XRAY 12:22 | PROVIDERS: PCP Internal Medicine; Visit Provider Nurse Practitioner Family | DX: G47.33 Obstructive sleep apnea (adult) (pediatric) (principal); J86.9 Pyothorax without fistula; R07.81 Pleurodynia; Z99.89 Dependence on other enabling machines and devices | CPT/HCPCS: 71046; 99212 ==

== ENCOUNTER → 2024-12-25 15:34 | Outpatient (BNV) | payer OTHER, SELFPAY | PROVIDERS: PCP Internal Medicine; Visit Provider Radiology Diagnostic Radiology | DX: I51.7 Cardiomegaly (principal) | CPT/HCPCS: 71046 ==

== ENCOUNTER 2025-03-05 09:09 | Outpatient (AMB) | payer OTHER, SELFPAY ==
--- NOTE | 2025-03-05 08:51 | A.OFFVIS_ITS ---
Vital Signs 03/05/25 09:10 Height 5 ft 4 in Weight 251 lb 5.231 oz BMI 43.1 BP 160/72 H Blood Pressure Location Lt brachial Position Sitting Pulse 63 Pulse Source Pulse Oximeter Pulse Oximetry (%) 97 Oxygen Delivery Method Room Air Intake Visit Reasons: sleep apnea Allergies No Known Allergies Allergy (Verified 03/05/25 09:14) HPI HPI sleep apnea: Details: Edmund is a pleasant 59-year-old male, never smoker, with underlying moderate to severe MAHAMED on CPAP, coronary artery disease status post CABG x 3 2020, hypertension, hyperlipidemia, diabetes mellitus type 2, and GERD. In lab PSG 10/2024 revealed AHI 22 without significant nocturnal hypoxemia however poor sleep efficiency so likely underestimated severity of MAHAMED. An order for CPAP therapy in APAP mode with pressures [id number] was sent to [facility] and patient presents to review compliance report. Previously patient reported pleuritic di scomfort that spontaneously resolved, CXR unremarkable and denies any recurrence of discomfort. At this time denies any respiratory symptoms. [facility] Social History Patient Tobacco Use Status: Never used Tobacco Review of Systems Const Denies chills, Denies excessive sweating, Denies fever(s), Denies headache(s) and Denies night sweats Eyes Denies dry eyes, Denies irritation and Denies itchy eyes ENT Reports Normal hearing present, Denies headache(s), Denies nasal congestion, Denies nasal discharge, Denies post nasal drip and Denies sore throat Card Denies chest pain, Denies chest pain at rest, Denies chest pain with activity, Denies claudication, Denies leg edema, Denies dyspnea, Denies dyspnea on ex ertion, Denies orthopnea and Denies paroxysmal nocturnal dyspnea Resp Denies chest congestion, Denies cough, Denies excessive phlegm production, Denies pain on inspiration, Denies pain with cough, Denies dyspnea, Denies dyspnea on exertion, Denies stridor and Denies wheezing Musc Denies myalgias Neuro Reports Normal hearing present and Denies headache(s) Endo Denies excessive sweating Dennis/Lymph Denies lymphadenopathy Aller/Immun Denies itchy eyes, Denies seasonal rhinorrhea and Denies wheezing Physical Exam Vital Signs: Last Vital Signs Pulse 63 03/05/25 09:10 BP 160/72 H 12/01/25 09:10 Pulse Ox 97 03/05/25 09:10 Oxygen Delivery Method Room Air 03/05/25 09:10 BMI result Body Mass Index 43.1 Const General: cooperative, healthy appearing, comfortable, no acute distress, well developed and alert Nutritional Appearance: obese Orientation/consciousness: patient oriented x3 Limitations: no limitations HEENT Head: Yes normal to inspection, Yes normocephalic and Yes atraumatic Ears: hearing grossly normal bilaterally and external ears normal Eyes General: appearance normal, both eyes and all related structures Eyelids: Yes eyelids normal Sclerae: sclerae normal EOM: EOMs intact bilaterally Neck Neck: Yes normal visual inspection and Yes no lymphadenopathy Lymphatic: no lymphadenopathy noted Chest Chest palpation & inspection: normal inspection of the chest Resp Effort & Inspection: normal respiratory effort, able to speak in complete sentences, no audible wheezes, no cough, no stridor, not tachypneic, no tripod positioning and no use of accessory muscles Auscultation: clear to auscultation bilaterally Cardio Jugular venous distension: no JVD Rate: regular rate Rhythm: regular rhythm Skin Other: warm, dry General skin exam: no rashes or lesions noted Neuro General: patient oriented x3 Cranial nerves: Yes Normal hearing present Cognition (Neuro): normal cognition Gait exam (Neuro): Normal gait present Extrem General: Yes normal to inspection, Yes capillary refill normal, Yes no clubbing, cyanosis or edema and Yes no pedal edema Psych Appearance: grossly normal and well kempt Speech and movement: Normal speech and movement present and Clear speech present Affect: normal affect Attitude: cooperative Thought process: Normal thought process present Thought content: Normal thought content present Insight: Good insight present (Psych) Judgement: Good judgement present (Psych) Assessment & Plan Assessment & Plan (1) Severe obstructive sleep apnea: Code(s): G47.33 - Obstructive sleep apnea (adult) (pediatric) Category: Medical Plan Patient has been using CPAP therapy and benefitting from use. He does report some nasal congestion which we discussed trialing a nasal spray and consider adjusting humidity on machine. Reviewed compliance report for the last 60 days which revealed 100% use greater than 4 hours, AHI 4.7 with significant leaking. Discussed importance of proper mask fit and benefits of trying a new mask, which he is agreeable to reach out to [facility]. All questions were answered and patient is in agreement of plan. Will follow up in 3 months or sooner if needed. Coding Level of Care Code Est Pt Level 3 (93368) Diagnoses Severe obstructive sleep apnea G47.33
[2025-03-05 09:10] VITALS: BP 160/72; PULSE 63; O2SAT 97; BMI 43.1
--- OUTSIDE RECORDS SUMMARY | 2025-03-05 10:41 | XMS_ITS | Clinical Summary ---
Author Organization [facility] [address] [place] [address] [place] [phone] Phone Care Team Providers Care Cable Splicer Apprentice Name Role Phone Krish Adams MD Primary Care Provider Allergies No known active allergies Medications lansoprazole (PREVACID) [address] capsule Take 1 capsule (15 mg total) by mouth 1 (one) time each day. 023 Active aspirin 81 mg EC tablet Take 81 mg by mouth daily. Active blood-glucose meter (BLOOD GLUCOSE MONITORING MISC) Check fasting sugars once daily upon awakening before food or drink Active isopropyl alcohol-benzocai ne 70-6 % pads, medicated 1 Each by Does not apply route daily. Check fasting sugars once daily upon awakening before food or drink Active miscellaneous medical supply misc HISTORICAL CPAP - Inhale into the lungs.apria-press ure 6-16 Active FreeStyle Test test stripIndications :Type 2 diabetes mellitus without complications ([facility] V24, [facility] V28) USE TO CHECK SUGARS TWICE DAILY 200 strip 1 025 Active freestyle (FreeStyle Lancets) 28 gauge lancets Check blood sugars 1-2 times a day. 200 each 2 025 Active metoprolol tartrate (LOPRESSOR) 25 mg tablet TAKE 1 TABLET BY MOUTH TWICE A DAY 180 tablet 1 025 Active lisinopril (PRINIVIL,ZESTRI L) 40 mg tablet TAKE 1 TABLET BY MOUTH 1 TIME EACH DAY. 90 tablet 1 025 Active nitroglycerin (NITROSTAT) 0.[address] 1 TABLET UNDER THE TONGUE EVERY 5 MINUTES IF NEEDED FOR CHEST PAIN. 25 tablet 1 025 Active metFORMIN XR (GLUCOPHAGE-XR) 500 mg 24 hr tablet TAKE 2 TABLETS BY MOUTH TWICE A DAY WITH MEALS 360 tablet 025 Active Trulicity 1.5 mg/0.5 mL pen injector injectionIndicat ions:Coronary artery disease involving coronary bypass graft of [place] heart without angina pectoris,Primary hypertension,Mix ed hyperlipidemia,T ype 2 diabetes mellitus without complication, without long-term current use of insulin ([facility] V24, [facility] V28),MAHAMED on CPAP,Gastroesoph ageal reflux disease without esophagitis,Asym ptomatic varicose veins of both lower extremities INJECT 0.5 ML (1.5 MG) SUBCUTANEOUSLY ONE TIME PER WEEK 6 mL 025 Active atorvastatin (LIPITOR) 40 mg tablet TAKE 1 TABLET BY MOUTH 1 TIME EACH DAY. 90 tablet 025 Active dulaglutide (Trulicity) 1.5 mg/0.5 mL pen injector injectionIndicat ions:Coronary artery disease involving coronary bypass graft of [place] heart without angina pectoris,Primary hypertension,Mix ed hyperlipidemia,T ype 2 diabetes mellitus without complication, without long-term current use of insulin ([facility] V24, [facility] V28),MAHAMED on CPAP,Gastroesoph ageal reflux disease without esophagitis,Asym ptomatic varicose veins of both lower extremities Inject 0.5 mL (1.5 mg total) under the skin 1 (one) time per week. 6 mL 1 025 2024 Discontinued atorvastatin (LIPITOR) 40 mg tablet Take 1 tablet (40 mg total) by mouth 1 (one) time each day. 90 each 1 025 2024 Discontinued Active Problems Problem Noted Date Diagnosed Date Gastroesophageal reflux disease without esophagi tis 07/27/2024 Asymptomatic varicose veins of both lower extrem ities 07/27/2024 Morbid obesity with BMI of 4 0.0-44.9, adult ([facility] V24, [facility] V28) 02/01/2024 Primary hypertension 02/08/2023 Overview (02/01/2024): [...] test 02/07/2020 Overview (02/01/2024): 02/02/2020 Seen by [facility], Dr. Fenton Medications adjusted and scheduled for echo and cardiac cath Type 2 diabetes mellitus wit hout complication, without long-term current use of insulin ([facility] V24, [facility] V28) 01/18/2020 MAHAMED on CPAP 03/08/2017 Overview (02/01/2024): 07/24/2018 to 07/23/2019. CPAP@ 6-16/Average 12.6/Max 14.3. 100% compliant with using the machine for >4 hours/day. Average use is 8.5 hours a night with AHI 3.7. PLMD (periodic limb movement disorder) 0 Encounters Date Type Department Care Team Description 12/26/2024 Telephone [facility] [address] [facility] [address] [place] [address] Provider, Not In System from Last 3 Months Immunizations Immunization Administration Dates Next Due Influenza Quadravalent, MDCK [...] (hyperlipidemia) DX:HLD (hyp erlipidemia) DM (diabetes mellitus) ([facility] V24, [facility] V28) DX:DM (diabetes mellitus) (H CC) CAD [...] ed Within the last 3 months, ho geovani many times did you visit the emergency [...] your loved ones. For example, child care associate or elderly care for an older adult? [...] Date Recorded What is your living situation? Unrecognized valu e 03/13/2024 Sex and Gender Information Value Date Recorded [...] Comments Diabetes: Annual Retina Eye Exam 10/27/1973 RSV Immunization Adult Patients (1 - Risk 50-74 years 1-dose series) 10/27/2013 Pneumococcal Vaccine: 50+ Years (2 of 2 - PCV) 05/09/2021 05/09/2020 Zoster Vaccines (2 of 2) 08/06/2021 06/11/2021 HIV Screening 03/14/2022 Diabetes: Blood Sugar Control Test (HGBA1C) 09/18/2024 03/20/2024, 10/04/2023, 10/04/2023 Diabetes: Annual Foot Exam 09/19/2024 09/20/2023 COVID-19 Vaccine ( season) 2024 01/13/2024, 01/15/2022, 07/01/2020, Additional history exists Influenza Vaccine (#1) 2024 , 01/19/2023, 01/16/2022, [...] Procedure Name Priority Date/Time Associated Diagnosis Comments EXTERNAL XRAY REPORT 12/25/2024 EXTERNAL XRAY REPORT 12/25/2024 MICROALBUMIN CREATININE URINE RATIO Routine 03/20/2024 11:42 AM EST Physical exam Coronary artery disease involving coronary bypass graft of [place] heart without angina pectoris Primary hypertension Mixed hyperlipidemia Type 2 diabetes mellitus without complication, without long-term current use of insulin ([facility] V24, [facility] V28) MAHAMED on CPAP Gastroesophageal reflux disease without esophagitis Multiple atypical skin moles Asymptomatic varicose veins of both lower extremities BASIC METABOLIC PANEL Routine 03/20/2024 11:41 AM EST Physical exam Coronary artery disease involving coronary bypass graft of [place] heart without angina pectoris Primary hypertension Mixed hyperlipidemia Type 2 diabetes mellitus without complication, without long-term current use of insulin ([facility] V24, [facility] V28) MAHAMED on CPAP Gastroesophageal reflux disease without esophagitis Multiple atypical skin moles Asymptomatic varicose veins of both lower extremities HEMOGLOBIN A1C Routine 03/20/2024 11:41 AM EST Physical exam Coronary artery disease involving coronary bypass graft of [place] heart without angina pectoris Primary hypertension Mixed hyperlipidemia Type 2 diabetes mellitus without complication, without long-term current use of insulin ([facility] V24, [facility] V28) MAHAMED on CPAP Gastroesophageal reflux disease without esophagitis Multiple atypical skin moles Asymptomatic varicose veins of both lower extremities LIPID PANEL Routine 10/04/2023 DIABETES FOOT EXAM Routine 09/20/2023 COLONOSCOPY Routine 02/21/2021 HEPATITIS C SCREENING Routine 01/15/2021 from Last 3 Months or Most Recently Relevant to Health Maintenance Results * External Xray Report (12/25/2024) Only the most recent of2 resultswithin the time period is included. Anatomical Region Laterality Modality Radiographic Letha ging Provider [facility] XR PROCEDURES Final Result * Microalbumin creatinine urine ratio (03/20/2024 11:42 AM EST) Creatinine, Urine 135.0 mg/dL LAB CHEMISTRY METHOD 03/20/2024 5:50 PM EST [facility] Microalb, Ur 17.6 0.0 - 29.0 mg/L LAB CHEMISTRY METHOD 03/20/2024 5:50 PM EST [facility] Microalb/Creat Ratio 13 <30 mg/g creat LAB CHEMISTRY METHOD 03/20/2024 5:50 PM EST [facility] Urine Urine specimen obtained by clean catch procedure / Unknown Non-blood Collection / Unknown 03/20/2024 11:42 AM EST 03/20/2024 11:42 AM EST Krish Adams MD LAB URINE ORDERABLES Final Result Performing Organization Address City/[facility]/ZIP Co de Phone Number [facility] [address] [place] [address], * (ABNORMAL) Hemoglobin A1c (03/20/2024 11:41 AM EST) Hemoglobin A1C 6.5(H) <6.5 % LAB CHEMISTRY METHOD 03/20/2024 2:46 PM EST [facility] Mean Bld Glu Estim. 140 mg/dL LAB CHEMISTRY METHOD 03/20/2024 2:46 PM EST [facility] Blood Venous blood specimen / Unknown Venipuncture / Unknown 03/20/2024 11:41 AM EST 03/20/2024 11:41 AM EST Krish Adams MD LAB BLOOD ORDERABLES Final Result [facility] [address] [place] [address], * (ABNORMAL) Basic metabolic panel (03/20/2024 11:41 AM EST) Sodium 142 133 - 145 mmol/L LAB CHEMISTRY METHOD 03/20/2024 7:12 PM EST [facility] Potassium 4.2 3.5 - 5.5 mmol/L LAB CHEMISTRY METHOD 03/20/2024 7:12 PM EST [facility] Chloride 109 96 - 110 mmol/L LAB CHEMISTRY METHOD 03/20/2024 7:12 PM EST [facility] CO2 26 21 - 32 mmol/L LAB CHEMISTRY METHOD 03/20/2024 7:12 PM [facility] Anion Gap 7 3 - 11 LAB CHEMISTRY METHOD 03/20/2024 7:12 PM [facility] Glucose 127(H) 70 - 100 mg/dL LAB CHEMISTRY METHOD 03/20/2024 7:12 PM [facility] BUN 10 5 - 25 mg/dL LAB CHEMISTRY METHOD 03/20/2024 7:12 PM [facility] Creatinine 0.70 0.70 - 1.30 mg/dL LAB CHEMISTRY METHOD 03/20/2024 7:12 PM [facility] eGFR 105 >=60 mL/min/1. 73m2 LAB CHEMISTRY METHOD 03/20/2024 7:12 PM [facility] Comment:Calculation based on the Chronic Kidney Disease Epidemiology Collaboration (CKD-EPI) equation refit without adjustment for race. BUN/Creatinine Ratio 14.3 LAB CHEMISTRY METHOD 03/20/2024 7:12 PM [facility] Calcium 9.2 8.5 - 10.5 mg/dL LAB CHEMISTRY METHOD 03/20/2024 7:12 PM [facility] Blood Venous blood specimen / Unknown Venipuncture / Unknown 03/20/2024 11:41 AM EST 03/20/2024 11:41 AM EST Krish Adams MD LAB BLOOD ORDERABLES Final Result [facility] [address] [place] [address], [place] [phone] * Lipid panel (10/04/2023) [facility] LDL/HDL Ratio 2 0 - 4 Triglycerides 111 0 - 150 mg/dL Cholesterol 112 0 - 200 mg/dL HDL 51 >=40 mg/dL LDL Cholesterol 39 0 - 100 mg/dL Blood Venous blood specimen / Unknown Historical Provider LAB BLOOD ORDERABLES Alie l Result * Diabetes Foot Exam (09/20/2023) [facility] Diabetes: Annual Foot Exam abstracted Historical Provider HEALTH MAINTENANCE Final Result * Colonoscopy (02/21/2021) [facility] Colonoscopy abstracted,no interpretation Anatomical Region Laterality Modality Other Historical Provider HEALTH MAINTENANCE Final Result * Hepatitis C Screening (01/15/2021) [facility] Hepatitis C Screening abstracted Historical Provider HEALTH MAINTENANCE Final Result from Last 3 Months or Most Recently Relevant to Health Maintenance Insurance [facility] [phone] Care Teams Cable Splicer Apprentice Relationship Specialty Start Date End Date Krish Adams MD [address] [place] [address] PCP - General Internal Medicine 08/04/21
== END 2025-03-05 09:36 | disposition home or self-care (01) ==
PROVIDERS: PCP Internal Medicine; Visit Provider Nurse Practitioner Family
DX: G47.33 Obstructive sleep apnea (adult) (pediatric) (principal)
CPT/HCPCS: 99213

== ENCOUNTER → 2025-03-05 09:09 | Outpatient (BNVA) | payer OTHER, SELFPAY | PROVIDERS: PCP Internal Medicine; Visit Provider Nurse Practitioner Family | DX: G47.33 Obstructive sleep apnea (adult) (pediatric) (principal); Z99.89 Dependence on other enabling machines and devices | CPT/HCPCS: 99212 ==